=== PATIENT | female | born 1960 ===

== ENCOUNTER 2018-07-09 14:36 | Emergency (ER) | payer MEDICAID ==
[2018-07-09 14:36] VITALS: BMI 21.9
[2018-07-09 14:44] VITALS: PULSE 71
[2018-07-09 15:09] LABS: SQUAMOUS EPITHIAL < 1 /hpf (0-5); URINE BACTERIA RARE (<OCC); URINE BILIRUBIN NEGATIVE (NEGATIVE); URINE BLOOD 3+ (NEGATIVE); URINE CLARITY Clear (Clear); URINE COLOR Yellow (YELLOW); URINE GLUCOSE (UA) NORMAL (Normal); URINE LEUKOCYTE ESTERASE 3+ Leu/uL (Negative); URINE PROTEIN NEGATIVE (NEGATIVE)
--- NOTE | 2018-07-09 16:01 | C.PDOC ---
History Of Present Illness 58-year-old female presents to the ED for evaluation of dysuria for two days. Patient also reports blood-tinged urine when she wipes herself after using the bathroom. Patient states she took amoxicillin, which she received from the [place], yesterday with mild relief. She denies fever, nausea, vomiting, diarrhea, vaginal bleeding/discharge. Time Seen by Provider: 07/09/18 14:46 Chief Complaint (Nursing): Female Genitourinary History Per: Patient History/Exam Limitations: no limitations Onset/Duration Of Symptoms: Days (2) Current Symptoms Are (Timing): Still Present Associated Symptoms: Urinary Symptoms. denies: Fever, Chills, Nausea, Vomiting Additional History Per: Patient Past Medical History Reviewed: Historical Data, Nursing Documentation, Vital Signs Vital Signs: Last Vital Signs Temp 98 F 07/09/18 14:41 Pulse 71 07/09/18 14:41 Resp 18 07/09/18 14:41 BP 131/87 07/09/18 14:41 Pulse Ox 99 07/09/18 14:41 - Medical History PMH: No Chronic Diseases Denies: Anxiety Surgical History: No Surg Hx - [facility] Procedures D & C NEC (09/02/02) Family History: States: Unknown Family Hx - Social History Hx Alcohol Use: No Hx Substance Use: No - Immunization History Hx Tetanus Toxoid Vaccination: No Hx Influenza Vaccination: No Hx Pneumococcal Vaccination: No Review Of Systems Constitutional: Negative for: Fever, Chills Gastrointestinal: Negative for: Nausea, Vomiting, Diarrhea Genitourinary: Positive for: Dysuria, Other (blood-tinged urine). Negative for: Vaginal Discharge, Vaginal Bleeding Physical Exam - Physical Exam Appears: Non-toxic, No Acute Distress Skin: Normal Color, Warm, Dry Head: Atraumatic, Normacephalic Eye(s): bilateral: Normal Inspection Oral Mucosa: Moist Neck: Supple Chest: Symmetrical, No Deformity, No Tenderness Cardiovascular: Rhythm Regular, No Murmur Respiratory: Normal Breath Sounds, No Rales, No Rhonchi, No Wheezing Gastrointestinal/Abdominal: Soft, Tenderness (mild, suprapubic ), No Guarding, No Rebound, Other (negative McBurney's point tenderness, negative Liana's sign ) Extremity: Normal ROM, Capillary Refill (less than 2 seconds ) Neurological/Psych: Oriented x3, Normal Speech, Normal Cognition ED Course And Treatment O2 Sat by Pulse Oximetry: 99 (on RA) Pulse Ox Interpretation: Normal Progress Note: Urinalysis ordered and reviewed. Cipro PO and Pyridum PO given. Disposition Counseled Patient/Family Regarding: Diagnosis, Need For Followup, Rx Given - Disposition Referrals: Ry Gutiérrez MD [Staff Provider] - Disposition: HOME/ ROUTINE Disposition Time: 16:00 Condition: STABLE Additional Instructions: FOLLOW UP WITH YOUR DOCTOR IN 1-2 DAYS USE MEDICATIONS DIRECTED RETURN TO EMERGENCY ROOM IF SYMPTOMS PERSIST OR BECOME WORSE SEGUIR CON SKINNER MDICO EN 1-2 RAYO UTILICE MEDICAMENTOS TERRY SE DIRIGE VUELVA A LA ROB DE EMERGENCIA SI LOS SNTOMAS PERSISTAN O SE CONVIERTEN EN UN PEOR Prescriptions: Ciprofloxacin [Cipro] 1 tab PO BID #14 tab Phenazopyridine [Pyridium] 100 mg PO TID #9 tab Instructions: Urinary Tract Infection, Adult (DC) Forms: [employer] (Mongolian) Print Language: ANDORRAN - Clinical Impression Clinical Impression: Cystitis, UTI (urinary tract infection) - Scribe Statement The provider has reviewed the documentation as recorded by the Scribe (Alis Burton) Provider Attestation: All medical record entries made by the Scribe were at my direction and personally dictated by me. I have reviewed the chart and agree that the record accurately reflects my personal performance of the history, physical exam, medical decision making, and the department course for this patient. I have also personally directed, reviewed, and agree with the discharge instructions and disposition.
[2018-07-09 16:08] VITALS: BP 118/79; RESP 20; TEMP 98.5
[2018-07-09 17:20] VITALS: O2SAT 99
== END 2018-07-09 16:17 | disposition home or self-care (01) ==
LOC: C.ER 14:36
DX: N30.90 Cystitis, unspecified without hematuria (principal)